=== PATIENT | female | born 1935 | race Caucasian/White ===

== ENCOUNTER 2017-04-08 11:23 | Inpatient (IN) ==
--- OUTSIDE RECORDS SUMMARY | 2017-04-08 13:51 | External Medical Summary | Encounter Summary ---
:1935 Author Organization [facility] Address [address] [place] [address] Phone Care Team Providers Name Role Phone Unavailable Primary Care Provider Unavailable Reason for Visit Reason Comments Medication Refill Encounter Details Date Type Department Care Team Description 01/20/2017 Refill [facility] Sierra Orozco, anesthesiology technologist Refill [address] [place] [address] Social History Tobacco Use Types Packs/Day Years Used Date Never Smoker Smokeless Tobacco: Never Used Alcohol Use Drinks/Week oz/Week Comments No Sex Assigned at Date Recorded Not on file as of this encounter Functional Status Functional Status Response Date of Assessment Does the patient have a hearing impairment: No 02/02/2016 as of this encounter Plan of Treatment Not on fileas of this encounter Visit Diagnoses Not on filein this encounter
--- OUTSIDE RECORDS SUMMARY | 2017-04-08 13:51 | External Medical Summary | Clinical Summary ---
:1935 Author Organization [facility] Address [address] [place] [address] Phone Care Team Providers Name Role Phone Unavailable Primary Care Provider Unavailable Source Comments Some departments are not documenting in the electronic medical record. If you do not see the information that you expected, contact Release of Information in the Health Information Management department at [phone] for further assistance in locating additional records.[facility] Allergies Active Allergy Reactions Severity Noted Date Comments Ampicillin RASH 06/27/2012 Current Medications Prescription Sig. Disp. Refills Start Date End Date Status erythromycin (E-MYCIN) Take 125 mg by Active 250 mg tablet mouth twice daily. metFORMIN (GLUCOPHAGE) Take 1 Tab by 180 Tab 07/15/2012 Active 500 mg mouth twice tabletIndications: CAD daily. DO NOT (coronary artery RESUME UNTIL disease), Hx of CABG, 07/14/12 Aortic stenosis, HTN (hypertension), Hyperlipidemia, Carotid artery stenosis, Diabetes mellitus (HCC), Aortic valve stenosis, CKD (chronic kidney disease), Type II diabetes mellitus (HCC), DM2 (diabetes mellitus, type 2) ([facility]), Type II or unspecified type diabetes mellitus without mention of complication, not stated as uncontrolled, Other and unspecified hyperlipidemia, Unspecified essential hypertension, Coronary atherosclerosis of unspecified type of vessel, [place] or graft, Aortic valve disorders, Occlusion and stenosis of carotid artery without mention of cerebral infarction, Personal history of surgery to heart and great vessels, presenting hazards to health, Chronic kidney disease, unspecified glipiZIDE (GLUCOTROL) 10 Take 0.5 Tabs by 90 Tab 0 09/11/2012 Active mg tablet mouth twice daily. vitamins, multiple Take 1 Tab by Active tablet mouth daily. aspirin EC 81 mg tablet Take 81 mg by Active mouth daily. docusate (COLACE) 100 mg Take 100 mg by Active capsule mouth twice daily. carvedilol (COREG) 25 mg Take 1 Tab by 180 Tab 3 09/27/2013 Active tabletIndications: HTN mouth twice (hypertension) daily. cholecalciferol (VITAMIN Take 1,000 Units Active D-3) 1,000 units tablet by mouth daily. cyanocobalamin (VITAMIN Inject to Active B-12, RUBRAMIN) 1,000 area(s) as mcg/mL injection directed every 30 days. levothyroxine Take 50 mcg by Active (SYNTHROID) 50 mcg mouth daily 30 tablet minutes before breakfast. pantoprazole DR Take 40 mg by Active (PROTONIX) 40 mg tablet mouth daily. PEG 400-Propylene Glycol Place 1-2 Drops Active (SYSTANE) 0.4-0.3 % dpet into or around eye(s) daily. atorvastatin (LIPITOR) Take 1 Tab by 90 Tab 3 02/03/2016 Active 40 mg tablet mouth at bedtime daily. nitroglycerin Place 1 Tab 25 Tab 3 07/16/2016 Active (NITROSTAT) 0.4 mg under tongue tablet every 5 minutes as needed for Chest Pain. Max of 3 tablets, call 911. benazepril (LOTENSIN) 40 Take 1 tablet by 90 tablet 3 01/20/2017 Active mg tablet mouth daily. Active Problems Problem Noted Date S/P TAVR (transcatheter aortic valve replacement) 10/20/2016 NSTEMI (non-ST elevated myocardial infarction) ([facility]) 02/01/2016 History of CVA (cerebrovascular accident) 08/25/2015 Peripheral vascular disease ([facility]) 10/24/2013 Overview: 1. 09/2013 - [facility]RE[facility] - Wound, open, toe 10/24/2013 H/O intracranial hemorrhage 03/16/2013 Overview: 03/31/14-[facility] ED visit- hypertensive crisis, fall with mental status changes, hx CVA; 04/01/14- Head CT, Findings c/w previous left temporal infarct, no signs of acute infarction or hemorrhage. Diastolic CHF, chronic ([facility]) 09/08/2012 CKD (chronic kidney disease) stage 3, GFR 30-59 ml/min 07/12/2012 Aortic stenosis 07/12/2012 DM2 (diabetes mellitus, type 2) ([facility]) 07/12/2012 Coronary artery disease involving [place] coronary artery of [place] heart 06/27 without angina pectoris Overview: 04/26/07-PTCA/Stent to the ostium of the PDA utilizing a 2.0 x 12 Multilink Mini Vision. MLAD successfully stented with a 2.25 x 16 Xpress II stent. 07/12/12: Drug-eluting stent PCI of SVG to RCA 07/02/16 MPI Stress Test @ [facility]: 1. Abnormal perfusion study with ischemia and infarction. 2. Large defect of the apex and septum in the LAD distrubution. This improves very significantly from stress to rest consistent with ischemia, consistent with apical infarction. 3. The overall global systolic function performance suggest a normal EF. The septum has decreased thickening and compared to the lateral wall. LVEF 67%. Last Assessment & Plan: Ms. Hunter had a right and left heart catheterization in July 12, 2012. This showed severe [place] coronary artery disease with a widely patent KINNEY to LAD and a 90% ostial SVG to right PDA. She had a suc cessful PCI with a 3 X 8 mm Xience drug-eluting stent. The patient has been doing well since that time. She denies any episodes of chest pain. She continues on dual antiplatelet therapy with aspirin and Plavix, and continues with aggressive secondary prevention measures. I encouraged her to continue with daily exercise as tolerated. Hx of CABG 06/27/2012 Overview: 08/31/07-CABG x 2 [facility]: KINNEY to LAD. Reverse left SVG to PDA. Essential hypertension 06/27/2012 Last Assessment & Plan: Ms. Hunter's blood pressure is well controlled today. She is tolerating her medications well. We will continue her on her current regimen. Hyperlipidemia 06/27/2012 Carotid artery stenosis 06/27/2012 Overview: 04/01/14-Carotid Ultrasound, [facility]-atherosclerotic disease with stenosis, previous endarterectomy, Right 16-49%, Left 50-79%. Not changed significantly since 2011 study Resolved Problems Problem Noted Date Resolved Date Chest pain 02/01/2016 10/20/2016 Hypertensive emergency 02/01/2016 10/20/2016 Chest discomfort 08/25/2015 10/20/2016 Elevated troponin 08/24/2015 10/20/2016 MCKAYLA (acute kidney injury) (HCC) 09/11/2012 10/20/2016 Chronic systolic congestive heart failure 09/11/2012 09/02/2015 Anemia associated with acute blood loss 09/08/2012 10/20/2016 Aortic valve stenosis 06/27/2012 10/20/2016 Overview: 06/23/12-Echo: EF 65%. Severe aortic stenosis. No regurgitation. Moderate LVH and elevated filling pressure. Mild mitral regurgitation. Normal pulmonary artery pressure. Mild tricuspid regurgitation. 09/07/12-Transaortic valve replacement utilizing a number 23 Natalee valve. 09/08/12-Echo: EF=65%. Grade I (mild) left ventricular diastolic dysfunction. Elevated left atrial pressure. Mild concentric LV hypertrophy. Severe mitral annular calcification. Tricuspid Valve has mild regurgitation. A transcatheter aortic valve prosthesis is present and well seated without evidence of stenosis. There is trace anterior periprosthetic regurgitation. PAP=39 mmHg 10/20/12-Echo: Normal left ventricular function, EF 65% - mild concentric left ventricular hypertrophy. Mild left atrial enlargement. Well seated #23 Fry Natalee valve with trace paravalvular insufficiency, mean AV gradient ~ 12.6 mm Hg. Mild mitral and tricuspid insufficiency. Grade I diastolic dysfunction with an estimated peak PAP ~ 34mm hg. No pericardial effusion Last Assessment & Plan: Ms. Hunter has known severe aortic stenosis. Her recent echocardiogram from June showed a calculated valve area of 0.54 cm2, mean gradient of 41 mmHg, peak velocity of 4.2 m/s. The patient is current ly being evaluated by Dr. Clemons for inclusion in the CoreValve study. She currently is doing reasonably well without significant limitations. Type II diabetes mellitus (HCC) 06/27/2012 07/12/2012 Encounters Date Type Specialty Care Team Description 01/20/2017 Refill Cardiology Sierra Orozco, poultryman Refill from Last 3 Months Immunizations Name Dates Previously Given Next Due Flu Vaccine=>3 YO (Historical) 02/06/2014 Flu Vaccine Trivalent=>3 Yo (Preservative Free) 03/17/2013 Family History Medical History Relation Name Comments High Cholesterol Sister Hypertension Sister Relation Name Status Comments Sister Social History Tobacco Use Types Packs/Day Years Used Date Never Smoker Smokeless Tobacco: Never Used Tobacco Cessation: Counseling Given: No Alcohol Use Drinks/Week oz/Week Comments No Sex Assigned at Date Recorded Not on file Last Filed Vital Signs Vital Sign Reading Time Taken Blood Pressure 136/60 10/20/2016 10:52 AM CDT Pulse 53 10/20/2016 10:52 AM CDT Temperature 36.7 C (98 F) 02/03/2016 10:55 AM CDT Respiratory Rate - - Oxygen Saturation 98% 10/20/2016 10:52 AM CDT Inhaled Oxygen Concentration - - Weight 61.1 kg (134 lb 12.8 oz) 10/20/2016 10:52 AM CDT Height 165.1 cm (5' 5") 10/20/2016 10:52 AM CDT Body Mass Index 22.43 10/20/2016 10:52 AM CDT Plan of Treatment Health Maintenance Due Date Last Done Comments PHYSICAL (COMPREHENSIVE) EXAM 1940 PERTUSSIS VACCINE 1944 TETANUS VACCINE 1950 DILATED EYE EXAM 1951 FOOT EXAM 1951 MICROALBUMIN 1951 SHINGLES VACCINE 1993 OSTEOPOROSIS SCREENING 1998 PREVNAR/PNEUMOVAX (#1) 1998 HBA1C 07/31/2016 02/01/2016, 08/24/2015, 03/16/2013, Additional history exists INFLUENZA VACCINE 12/07/2016 02/06/2014, 03/17/2013 Implants Implanted Type Area Metallography Teacher Device Identifier Expiration Date Model / Serial / Lot Heart Valve
--- OUTSIDE RECORDS SUMMARY | 2017-04-08 13:51 | External Medical Summary | Continuity of Care Document ---
:1935 Author Organization [facility] Care Team Providers Name Role Phone [employer] Unavailable Unavailable Family History Value Date Source Advance Directives Order Name Results Value Date Source
--- OUTSIDE RECORDS SUMMARY | 2017-04-08 13:51 | External Medical Summary | Clinical Summary ---
:1935 Author Organization [facility] Address [address] [address] Phone Allergies Active Allergy Reactions Severity Noted Date Comments Ampicillin Hives Current Medications Prescription Sig. Disp. Refills Start Date End Date Status atorvastatin (LIPITOR) taking 60mg orally 0 0 01/30/2009 Active 80 MG tablet daily metFORMIN (GLUCOPHAGE) one orally 2 x a day 0 0 01/30/2009 Active 500 MG tablet Clocortolone Pivalate Apply to affected 0 0 01/30/2009 Active (CLODERM PUMP) 0.1 % area three times CREA daily benazepril (LOTENSIN) 20 one orally daily 0 0 01/30/2009 Active MG tablet aspirin 325 MG tablet one orally daily 0 0 01/30/2009 Active docusate sodium (COLACE) 1-2 orally at 0 0 01/30/2009 Active 100 MG capsule bedtime glipiZIDE (GLUCOTROL) 10 one orally 2 x a day 0 0 01/30/2009 Active MG tablet atenolol (TENORMIN) 25 one orally daily 0 0 01/30/2009 Active MG tablet desonide (DESOWEN) 0.05 Apply topically See 30 0 02/03/2009 Active % cream Admin Instructions. .reconcile (MEDICATION No Sig 1 0 10/27/2012 Active LIST IMPORTED) Active Problems Not on file Social History Tobacco Use Types Packs/Day Years Used Date Never Assessed Sex Assigned at Date Recorded Not on file Plan of Treatment Health Maintenance Due Date Last Done Comments DTaP,Tdap,and Td Vaccines (1 - Tdap) 1952 Zoster Vaccine (#1) 1993 Pneumo-Adult (1 of 2 - PCV13) 1998 Influenza Vaccine (#1) 2017 Results Not on filefrom Last 3 Months
--- NOTE | 2017-04-08 14:29 | IRU History & Physical Report ---
HPI [facility] Date: 423 Chief complaint: I'm weak and can't do what I want to do HPI: Ms. Hunter is an 81-year-old female referred by Dr. Michael Li who is also her primary care physician in [facility]. She had developed acute confusion but declined intervention during the day on 03/31/2017. History is obtained predominantly from the patient and her daughters are with her today in the examination room. She told them that she felt like she was so dizzy that she could pass out. As the day progressed she became more and more confused and lethargic. It looked like she had had another bleed because she had had one about 3-4 years ago and a behavior the same way. Ultimately she agreed to be seen and was seen in the emergency department at [facility]. (She was visiting her daughter here in [place] for Thanksgiving.) CT scan of the head revealed an acute intraparenchymal bleed involving the left frontal lobe. Bleed measured 4.5 x 4.3 cm. Blood pressure had been noted to be elevated at 230 systolic earlier in the day. She had been acutely confused during the day at but had no focal deficits. It is noted that her creatinine that time was 1.5. Patient was transferred acutely to [facility]. She did complain of headache as well. At [facility] in [place] neurosurgery (Dr. Napoles) was consulted. He did not recommend surgical intervention but recommended medical management. Repeat head CT was reportedly stable and she was transferred to her home. She was evaluated by physical therapy and occupational therapy near the end of her stay at [facility]. She was felt to be stable to go home. However, since that time one of her daughters has been staying with her because she was not stable and too weak to care for herself. Blood pressures at that time appeared to be controlled with lisinopril and Coreg. She actually went home on benazepril and Coreg. She was dismissed from [facility] on April 04 to return to her private home in [facility], but required one of her daughters staying with her at all times. CT angiogram of the head and neck performed in [place] on 04/01/2017 demonstrated the acute intraparenchymal hemorrhage in the left frontal location. In addition, there was noted intraventricular extension of the hemorrhage without obstructive hydrocephalus. The major intracranial arteries were patent without aneurysm. A previous right sided carotid endarterectomy was evident. There is some plaquing of the left internal carotid artery with less than 50% luminal narrowing on the left. She has a history of hypertension. She had a similar episode about 3-4 years ago which also turned out to be a bleed in a different location. Since being dismissed from [facility] this time, her blood pressures have been closely monitored. One time it did go up over 170 and she was seen in the emergency department at [facility]. She received several intravenous medications and blood pressure was difficult to bring down. However since that time her blood pressures have been doing better, ranging between 110 and 170 systolic. Diastolics are in the 40-50 range. She has a history of diabetes mellitus. She checks her blood sugars twice daily. Fasting sugars are around 160. She was on metformin plus glipizide. ( This was prior to the most recent bleed). Her blood sugars started going down and for this reason medications were discontinued. Subsequently her sugars went up and she was placed back on metformin only at a dose of 500 mg twice daily. Therefore she does have a history of quite a bit of variation in her blood sugars. She also has history of coronary artery disease and is status post bypass. She had an aortic valve placed about 4 years ago at ([facility]). This apparently is a porcine valve and she is on only a baby aspirin daily and no other anticoagulant. She does have some intermittent memory loss. However according to the family, at the previous stroke for which she was hospitalized and in fact on IRU about 3 -4 years ago, her cognition was worse and it is at the present time. I discussed the issue of resuscitation with the patient and her 2 daughters. She does want to be resuscitated, at least for a short time. She does not want a prolonged ventilator experience however. Level of functioning prior to the current bleed is as follows: She was independent for all activities. She could walk without an assistive device. She was modified independent for stairs. Prior to the current event, she was living independently in her home at [facility]. She had been visiting her daughter here in [place] for Thanksgiving when she started to have increased confusion. Current level of functioning is as follows: She requires moderate assistance for upper and lower body dressing as well as bed/chair/wheelchair transfers. Requires minimum assistance for toilet transfers and walking with multiple episodes of loss of balance. Stairs were not tested at this time. She is unable to safely live at home independently at this time. We received a phone call from her physician Dr. Michael Li because the patient' s functional impairments. She was evaluated by physical therapy and occupational therapy as an outpatient in [place] and felt to be a good candidate for inpatient rehabilitation. The following medical conditions are noted and require active monitoring and/or management: 1. Recent intraparenchymal bleed resulting in multiple functional impairments. She is at risk for continued bleeding or recurrent bleeding as well as other neurologic deficits. 2. Labile blood pressure. Her blood pressures have remained labile since the event. She is at risk for further uncontrolled hypertension and also requires avoidance of hypotension. 3. Diabetes mellitus, type II. In view of increased work demands she is at risk for hypoglycemia. In view of the stroke she is at risk for hyperglycemia. 4. Anemia. On 04/01/2017 her hemoglobin was 11.4. As of 04/04/2017 in [place] it was 9.8. Etiology of her anemia is not clear what this will require monitoring. 5. Acute kidney injury. Creatinine here in [place] was 1.5. Most recently in [place] it was measured at 1.1 on 04/04/2017. The following therapies will be needed: 1. Physical therapy: for transfers and ambulation and stairs. 2. Occupational therapy: for ADL's and transfers. 3. Medical management: for the above conditions. 4. 24 hour Rehabilitation Nursing to monitor and address the following: Blood sugars, blood pressures, neurologic status and assistance to reduce fall risk. [facility] Patient Stated Medical History Cerebrovascular Accident Yes Other Cardiology Yes: HEART VALVE Diabetes Mellitus Type 2 Yes Clinic Medical History Intraparenchymal hemorrhage of brain (Inactive Medical) Medical History Updates: NIDDM. HTN. Hyperlipidemia. CAD. CHF-uncertain ejection fraction. Last echocardiogram 2015. Cerebral hemorrhage. CVA-prior cerebral hemorrhage in approximately 2013. Anemia. Chronic dry eyes Surgical History: CABG. Aortic valve replacement-TAVR, [facility], approx. 2012. Right carotid endarterectomy Family History: Patient's father of old age. Mother's uncertain cause. - Social History Smoking status: Never smoker Substance use type: does not use Alcohol intake: never Alcohol intake frequency: does not drink Housing: house Household members: caregiver (formerly patient lived independently. Recently her daughters have had to live with her 24 hours daily.) Current occupational status: retired Current residence: Apartment/Private Home Social history: Patient is . Her has since . 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 Review of Systems - Constitutional Constitutional: Absent: anorexia, chills, fatigue, fever(s), headache(s), lethargy, malaise, night sweats, weakness, weight gain, weight loss - EENMT Eyes: Absent: blurry vision, change in vision, diplopia Mouth/Throat: Absent: changes in swallowing, painful swallowing, change in taste , bleeding gums, change in voice - Cardiovascular Cardiovascular: Absent: chest pain, palpitations, syncope, dyspnea on exertion, orthopnea, edema, cyanosis, heart murmur Rhythm: Present: regular rhythm Vascular: Absent: intermittent claudication, pedal edema, unilateral swelling - Respiratory Respiratory: Absent: cough, dyspnea, hemoptysis, dyspnea on exertion, wheezing, pain on inspiration, chest congestion, excessive phlegm production - Gastrointestinal Gastrointestinal: Present: constipation. Absent: abdominal pain, change in bowel habits, diarrhea, dyspepsia, dysphagia, early satiety, hematochezia, melena, nausea, vomiting - Genitourinary Genitourinary: Present: urinary incontinence - Musculoskeletal Musculoskeletal: Present: myalgias. Absent: abnormal gait, arthralgias, back pain, joint swelling, limited range of motion, muscle weakness - Integumentary/Breasts Integumentary: Absent: alopecia, erythema, lesions, pruritus, rash, jaundice - Neurological Neurological: Absent: abnormal gait, abnormal movements, abnormal speech, confusion, convulsions, dizziness, focal weakness, frequent falls, headache(s), loss of vision, memory loss, numbness, paresthesias, tremor(s) - Psychiatric Psychiatric: Present: other (cognition/memory tends to come and go.). Absent: abnormal sleep pattern, anxiety, depression - Endocrine Endocrine: Absent: cold intolerance, flushing, heat intolerance, palpitations - Hematologic/Lymphatic Hematologic/Lymphatic: Absent: easy bleeding, easy bruising, lymphadenopathy - Allergic/Immunologic Allergic/Immunologic: Absent: urticaria Medications Home Medications Medication Instructions Recorded Confirmed Type Acetaminophen [Tylenol] 650 mg PO PRN PRN #0 03/27/13 History Atorvastatin [Lipitor] 80 mg PO DAILY #0 03/27/13 History Carvedilol 25 mg PO BID #0 tab 03/27/13 03/31/17 History Docusate Sodium [Colace] 100 mg PO BID #0 03/27/13 History Famotidine [Pepcid] 20 mg PO DAILY #0 03/27/13 History Hydrocodone Bit/Acetaminophen 1 - 2 udtab PO PRN #0 03/27/13 History ([place] 5) Insuln Asp Prt/Insulin Aspart 0 - 4 unit SQ SS #0 03/27/13 History (Novolog Mix 70/30 Flexpen Syrn) Lisinopril [Prinivil] 10 mg PO BID #0 03/27/13 History Magnesium Hydroxide [Milk of 10 ml PO DAILY #0 03/27/13 History Magnesia] Sennosides/Docusate Sodium [Senna 1 tab PO BID #0 03/27/13 History S Tablet] Aspirin 1 tab PO DAILY 03/31/17 03/31/17 History Atorvastatin [Lipitor] 1 tab PO HS 03/31/17 03/31/17 History Benazepril HCl 40 mg PO 03/31/17 History GlipiZIDE [Glucotrol] 1 tab PO BID 03/31/17 03/31/17 History Levothyroxine Tab [Synthroid] 50 mcg PO ACB 03/31/17 03/31/17 History Metformin [Glucophage] 500 mg PO BID 03/31/17 03/31/17 History Pantoprazole Tab [Protonix Tab] 1 tab PO ACB 03/31/17 03/31/17 History Allergies Allergy/AdvReac Type Severity Reaction Status Date / Time ampicillin Allergy Unknown RASH Verified 03/31/17 22:17 Results IRU - Labs Labs: Have reviewed extensive outside records from [place] as well as [facility]. Also personally reviewed the CT scan. Exam - Constitutional Present: no acute distress, well nourished, well developed, average body habitus , cooperative - Routine HEENT Exam Head: Present: normocephalic, atraumatic. Absent: cushingoid faces, abrasion, laceration, hematoma Eye: Present: EOMI, PERRL (pupils are reactive but small bilaterally.). Absent : conjunctival icterus, scleral injection, periorbital swelling, nystagmus ENT: Present: mucous membranes moist, oropharynx clear - Routine Neck Exam Present: supple, full ROM, trachea midline. Absent: lymphadenopathy, thyromegaly, tenderness, swelling - Routine Chest/Breast/Axilla Exam Chest wall: Absent: tenderness, mass Axillae: Absent: lymphadenopathy, mass - Routine Respiratory Exam Present: CTA bilaterally. Absent: accessory muscle use, decreased breath sounds , prolonged expiratory phase, rales, respiratory distress, rhonchi, stridor, wheezes, crackles, distant breath sounds - Routine Cardiovascular Exam Present: RRR, S1, S2, murmur (grade 2-3/6 systolic murmur second right interspace and upper left sternal border), click (subtle click noted consistent with her prosthetic valve.). Absent: gallop, S3, S4, irregular rhythm - Routine Abdominal Exam Present: soft, normoactive bowel sounds, non distended, non tender. Absent: rebound, guarding, firm, rigid, organomegaly, mass, hernia, wound - Routine Extremities Exam Present: no edema, non tender, pulses intact, normal capillary refill. Absent: cyanosis, clubbing - Routine Back/Spine/Pelvis Exam Back/Spine: Present: full ROM. Absent: scoliosis, kyphosis - Routine Skin Exam Present: intact, dry, warm. Absent: cyanosis, erythema, pallor, mottling, petechiae, urticaria, lesions, jaundice - Routine Neurological Exam Present: alert, oriented X3, CN II-XII intact, moving all extremities, normal speech Fine motor movement appears to be normal bilaterally. There is no facial droop. Cranial nerves II through 7 appear to be intact bilaterally. Speech is fluent. Appears to be moderately well oriented. However she did indicate that both parents are living when in fact they're not. - Routine Psychiatric Exam Present: normal affect, normal thought process, cooperative, good judgment. Absent: depressed, anxious Sepsis Assessment - Evaluation Confirmed Suspected Infection: No SIRS Criteria: none IRU A/P (1) Subacute intracranial hemorrhage Current visit: Yes Status: Acute Date of intraparenchymal hemorrhage was 03/31/2017. She has had stable CT scans since that time. However she is at risk for further bleeding and further neurologic complications. This has resulted in significant functional deficits which required a multidisciplinary approach to allow her to live as independently as feasible. (2) Hypertension Qualifiers: Hypertension type: essential hypertension Qualified Code(s): I10 - Essential (primary) hypertension Current visit: Yes Status: Chronic Blood pressures have remained variable even since the stroke. She will require close monitoring of her blood pressures in an effort to avoid hypotension and avoid hypertension. (3) DM type 2 (diabetes mellitus, type 2) Qualifiers: Diabetes mellitus complication status: with hyperglycemia Diabetes mellitus joint terminal attack controller insulin use: without senior care use Qualified Code(s): E11.65 - Type 2 diabetes mellitus with hyperglycemia Current visit: Yes Status: Chronic Reports that she checks her blood sugars twice daily with fasting sugars running around 160. She is on metformin only at the present time. (4) Anemia Qualifiers: Anemia type: unspecified type Qualified Code(s): D64.9 - Anemia, unspecified Current visit: Yes Status: Acute Hemoglobin had dropped from around 11 g percent down to 9 g percent for uncertain reasons. Etiology of her anemia is not clear at this time. This we monitored carefully as she is at risk for further drop in her hemoglobin. Resuscitation Status: Full Code - Course Hospital Course: Gaudencio Coe MD: - Interventions to Obtain Goals PT Treatment Plan: Balance/Proprioception, Functional Activities, Gait Training , Patient/Family Education OT Treatment Plan: ADL (Basic Care), Balance Training, Pt./Family Education Goals Progress/Modifications: This patient requires a multidisciplinary approach in view of her diabetes mellitus which has had variable blood sugars, hypertension which at times has been quite high as well as the recent intraparenchymal bleed. She will be monitored by 24 hour rehabilitation nursing as well as be seen by the hospitalist service and OT and PT. She requires medical supervision of these issues as well.
[2017-04-08 15:35] VITALS: BMI 23.4
--- NOTE | 2017-04-08 15:43 | IRU 24Hr Post Admit Eval ---
24 Hr Post Admission Physical - Relevant Changes Relevant Changes: No Reviewed: I have reviewed the patient's information and concur with the finding and results of the pre-admission screen. Certification: I certify the patient for rehabilitation. - Patient Condition (1) Subacute intracranial hemorrhage Status: Acute Code(s): I62.9 - Nontraumatic intracranial hemorrhage, unspecified Classification: Present on IRF Admission, IRF Tx That Should Address Diagnosis, Diagnosis Requiring Medical Follow Up (2) Hypertension Status: Chronic Qualifiers: Hypertension type: essential hypertension Qualified Code(s): I10 - Essential (primary) hypertension Code(s): I10 - Essential (primary) hypertension Classification: Present on IRF Admission, IRF Tx That Should Address Diagnosis, Diagnosis Requiring Medical Follow Up (3) DM type 2 (diabetes mellitus, type 2) Status: Chronic Qualifiers: Diabetes mellitus complication status: with hyperglycemia Diabetes mellitus terminal worker insulin use: without terminal worker use Qualified Code(s): E11.65 - Type 2 diabetes mellitus with hyperglycemia Code(s): E11.9 - Type 2 diabetes mellitus without complications Classification: Present on IRF Admission, IRF Tx That Should Address Diagnosis, Diagnosis Requiring Medical Follow Up (4) Anemia Status: Acute Qualifiers: Anemia type: unspecified type Qualified Code(s): D64.9 - Anemia, unspecified Code(s): D64.9 - Anemia, unspecified Classification: Present on IRF Admission, IRF Tx That Should Address Diagnosis, Diagnosis Requiring Medical Follow Up - Prior Functional Status Lives With: With Family Residence Type: Apartment/Private Home Assitive Devices: None Prior Functional Status: Indep. at home or school, Indep. w/ all home ADL - Current Functional Status Current Level of Function: Current level of functioning is as follows: She requires moderate assistance for upper and lower body dressing as well as bed/chair/wheelchair transfers. Requires minimum assistance for toilet transfers and walking with multiple episodes of loss of balance. Stairs were not tested at this time. She is unable to safely live at home at this time. Failed Alternative Therapy: Yes (patient was evaluated for outpatient physical and occupational therapy. She is not a candidate for this because of the need for a multidisciplinary approach including monitoring and control of blood pressure and blood sugars as well as monitor her neurologic status.) Patient Requirements: The patient requires oversight by rehabilitation physician to manage their rehabilitation treatment plan and multidisciplinary approach to care that can only be provided in an IRF and requires a multidisciplinary approach to care, provided by professional PTs, OTs, STs, dieticians, RTs, rehabilitation nurses and is not available in lesser levels of care. Limitations Req: Mobility Impairment, ADL Impairment Physical Therapy Minutes: 90 Occupational Therapy Minutes: 90 Therapy: The patient is to receive therapy at least 5 days a week. - Complications/Comorbidities Impact on Functional Outcomes: Her recent intraparenchymal bleed as well as her reduced cognition may be factors in reducing her functional outcome. Barriers to Discharge: Weakness, Balance, Endurance, Medical Limitation - Plan to Avoid Complications Plan to Avoid Complications: The patient cannot receive this care in a lesser intensive setting such as Correction or Outpatient Therapy due to the patient requiring the following : She requires a highly corticated approach involving 24 rehabilitation nursing to monitor blood sugars, neurologic status and blood pressures. She requires a coordinated approach by occupational therapy and physical therapy with medical supervision. .
[2017-04-08] MEDS ORDERED: CYANOCOBALAMIN (B-12) 1,000mcg/ml INJECTION SQ SCH (15:45)
--- NOTE | 2017-04-08 15:48 | Progress Note ---
Progress Note: It is noted that Lovenox is contraindicated at present in view of the relatively recent intraparenchymal bleed. Secondly, she is on erythromycin for delayed gastric emptying.
[2017-04-08] MEDS: CARVEDILOL 25 MG TABLET PO SCH (18:39)
[2017-04-08] MEDS: METFORMIN 500 MG TABLET PO SCH (18:40)
[2017-04-08] MEDS: ATORVASTATIN 10 MG TABLET PO SCH (20:51)
[2017-04-08] MEDS: ERYTHROMYCIN 250 MG PO SCH (20:51)
[2017-04-08] MEDS: DOCUSATE SODIUM 100 MG CAPSULE PO SCH (20:51)
[2017-04-09] MEDS: PANTOPRAZOLE 40 MG TABLET PO SCH ×2 (05:14→07:39)
[2017-04-09] MEDS: LEVOTHYROXINE 50 MCG TABLET PO SCH ×2 (05:14→07:39)
[2017-04-09] MEDS: MULTI-VITAMIN PLAIN TABLET PO SCH (08:21)
[2017-04-09] MEDS: DOCUSATE SODIUM 100 MG CAPSULE PO SCH ×2 (08:21→21:28)
[2017-04-09] MEDS: ERYTHROMYCIN 250 MG PO SCH ×2 (08:22→21:28)
[2017-04-09] MEDS: METFORMIN 500 MG TABLET PO SCH ×2 (08:22→17:46)
[2017-04-09] MEDS: ASPIRIN 81 MG CHEWABLE TABLET PO SCH (08:22)
[2017-04-09] MEDS: CARVEDILOL 25 MG TABLET PO SCH ×2 (08:25→17:46)
[2017-04-09] MEDS: BENAZEPRIL 40 MG TABLET PO SCH (08:25)
[2017-04-09] MEDS ORDERED: SYSTANE EYE EACH EYE PRN (12:59)
--- NOTE | 2017-04-09 13:06 | Consult Note ---
<Yulia Cortes - Last Filed: 04/09/17 13:02> Consult Information - Data of Consult Consult date: 04/09/17 Requesting Physician: Gaudencio Coe MD Primary Care Provider: Michael Mata MD Family Provider: Michael Mata MD - Consult Narrative Reason for consult: Management of medical co-morbid conditions, including anemia , HTN, et al. History of present illness: Kristen is a very pleasant 81 yo WF who experienced a ICH 4-5 years ago and required hospitalization. She recovered nicely, but experienced a recurrence of her symptoms on 03/31/17. She was brought into the ER and was found to have a recurrence of a fairly large intraparenchymal hemorrhage, felt to be due to variable BP. She was transferred emergently to [place] and was evaluated by Dr. Napoles. He did not feel that she required surgery, and recommended medical management. Following stabilization, she was returned home, but has remained weak and deconditioned. Due to prior experience at [facility], family requested admission here for further rehabilitation and return to baseline function. A medical management consult has been requested by our service. She is seen with daughter at bedside. She reports feeling well. No acute needs are reported. Is more weak in her legs, but no specific focal weakness. Some mild intermittent confusion, which is improving. No difficulty eating. Does have some issues with dry eyes- requests eye drops be resumed. Daughter reports that her voice is a little more hoarse than usual, but pt. does not have any cough, sore throat, etc. No other acute concerns are reported. [facility] Patient Stated Medical History Cerebrovascular Accident Yes: 2013 Cataracts Yes Heart Murmur Yes Hypertension Yes Other Cardiology Yes: Pig aortic HEART VALVE Diabetes Mellitus Type 2 Yes Constipation Yes Other GI Yes: slowed gastric emptying Hx Incontinence Yes Osteoarthritis Yes Sepsis Yes: [facility] Medical History Subacute intracranial hemorrhage (Acute Medical) Hypertension (Chronic Medical) DM type 2 (diabetes mellitus, type 2) (Chronic Medical) Anemia (Acute Medical) Intraparenchymal hemorrhage of brain (Inactive Medical) Medical History Updates: NIDDM. HTN. Hyperlipidemia. CAD. CHF-uncertain ejection fraction. Last echocardiogram 2016. Cerebral hemorrhage. CVA-prior cerebral hemorrhage in approximately 2013. Intraparenchymal hemorrhage 2017. Anemia. Chronic dry eyes Surgical History: CABG. Aortic valve replacement-TAVR, [facility], approx. 2013. ( CV in [place]). Right carotid endarterectomy Family History: Father- Old age Mother- unknown - Social History Housing: house Current occupational status: retired Current residence: Apartment/Private Home Review of Systems - Constitutional Constitutional: Absent: headache(s), malaise - EENMT Eyes: Present: dry eye. Absent: blurry vision Balance: Absent: vertigo, ataxia Mouth/Throat: Present: change in voice. Absent: sore throat, scratchy throat, change in taste - Cardiovascular Cardiovascular: Present: heart murmur. Absent: chest pain, dyspnea on exertion , edema Rhythm: Present: regular rhythm Vascular: Absent: pedal edema - Respiratory Respiratory: Absent: cough, dyspnea, dyspnea on exertion - Gastrointestinal Gastrointestinal: Absent: abdominal pain, constipation, diarrhea, nausea, vomiting - Musculoskeletal Musculoskeletal: Present: muscle weakness. Absent: limited range of motion, neck pain - Integumentary/Breasts Integumentary: Absent: change in hair - Neurological Neurological: Present: abnormal gait, confusion, memory loss, weakness. Absent : headache(s) Neurological Comments: Improving Medications Home Medications Medication Instructions Recorded Confirmed Type Carvedilol 25 mg PO BID #0 tab 03/27/13 04/08/17 History Docusate Sodium [Colace] 100 mg PO BID #0 03/27/13 04/08/17 History Aspirin 1 tab PO DAILY 03/31/17 04/08/17 History Atorvastatin [Lipitor] 1 tab PO HS 03/31/17 04/08/17 History Benazepril HCl 40 mg PO DAILY 03/31/17 04/08/17 History Levothyroxine Tab [Synthroid] 50 mcg PO ACB 03/31/17 04/08/17 History Metformin [Glucophage] 500 mg PO BIDWM 03/31/17 04/08/17 History Pantoprazole Tab [Protonix Tab] 1 tab PO ACB 03/31/17 04/08/17 History Cholecalciferol (Vitamin D3) 400 unit PO DAILY 04/08/17 04/08/17 History [Vitamin D3] Cyanocobalamin (B-12) [Vit. B-12] 1,000 mcg SQ 1 MONTH 04/08/17 04/08/17 History Erythromycin Base [Erythromycin] 0.5 tab PO BID 04/08/17 04/08/17 History Multi-Vitamin Plain [Theragran] 1 tab PO DAILY 04/08/17 04/08/17 History Allergies Allergy/AdvReac Type Severity Reaction Status Date / Time ampicillin Allergy Unknown RASH Verified 04/08/17 20:49 Exam Vital Signs: Temperature 97.5 F 04/08/17 19:33 Pulse Rate 60 04/09/17 08:00 Respiratory Rate 16 04/09/17 08:00 Blood Pressure 122/52 04/09/17 08:00 Pulse Oximetry 97 04/09/17 08:00 Height/Weight/BMI: Height 1.63 m Weight 61.9 kg Body Mass Index 23.4 - Constitutional Present: no acute distress, well nourished, well developed, average body habitus , cooperative - Routine HEENT Exam Head: Present: normocephalic, atraumatic Eye: Present: EOMI, PERRL, normal accommodation. Absent: conjunctival icterus ENT: Present: mucous membranes moist - Routine Neck Exam Present: supple. Absent: tenderness, swelling - Routine Respiratory Exam Present: CTA bilaterally. Absent: accessory muscle use, dyspnea, rales, rhonchi , wheezes, crackles - Routine Cardiovascular Exam Present: RRR, S1, S2, murmur - Routine Abdominal Exam Present: soft, normoactive bowel sounds, non distended, non tender - Routine Extremities Exam Present: no edema, non tender - Routine Skin Exam Present: intact, dry, warm - Routine Neurological Exam Present: alert, oriented X3, moving all extremities, hemineglect, normal speech. Absent: facial asymmetry - Routine Psychiatric Exam Present: normal affect, cooperative Results - Labs CBC & Chem 7: 04/09/17 05:36 04/09/17 05:36 Assessment and Plan (1) Subacute intracranial hemorrhage Current visit: Yes Status: Acute Assessment and Plan: Assessment: Intraparenchymal hemorrhage, recurrence Variable Hypertension CAD h/o CABG Valvular heart disease h/o TAVR (no open valve surgery) Possible CHF Left ICA stenosis, mild DM2 Anemia Acute on chronic renal disease Plan: Higher risk of recurrence given history. Continue BP control- attempt to avoid aggressive highs or lows. Continue Coreg and DEMOND, but monitor SCr. Suspect CKD is chronic- baseline appears to be around 1.5. Continue ASA given cardiac history. Mild ICA stenosis- no surgical intervention. Hx of right CEA in the past. BG has been running high. Will add low-dose glipizide for now. Continue current metformin given age. Follow HGB- anemia may be related to stress, CKD, and acute IPH. Follow labs closely. Resume home eye gtts. Thank you for the consult- we will follow with you. DVT Prophylaxis: SCD's Resuscitation Status: Full Code Hospital Course Summary Disclaimer: The visit summary below is not to be considered part of the above Progress Note. Hospital Course: 04/09/17 13:34 Assessment: Intraparenchymal hemorrhage, recurrence Variable Hypertension CAD h/o CABG Valvular heart disease h/o TAVR (no open valve surgery) Possible CHF Left ICA stenosis, mild DM2 Anemia Acute on chronic renal disease Plan: Higher risk of recurrence given history. Continue BP control- attempt to avoid aggressive highs or lows. Continue Coreg and DEMOND, but monitor SCr. Suspect CKD is chronic- baseline appears to be around 1.5. Continue ASA given cardiac history. Mild ICA stenosis- no surgical intervention. Hx of right CEA in the past. BG has been running high. Will add low-dose glipizide for now. Continue current metformin given age. Follow HGB- anemia may be related to stress, CKD, and acute IPH. Follow labs closely. Resume home eye gtts. Thank you for the consult- we will follow with you. <Johnny Mancera - Last Filed: 04/09/17 17:56> Consult Information - Data of Consult Requesting Physician: Gaudencio Coe MD Primary Care Provider: Michael Mata MD Family Provider: Michael Mata MD [facility] Patient Stated Medical History Cerebrovascular Accident Yes: 2013 Cataracts Yes Heart Murmur Yes Hypertension Yes Other Cardiology Yes: Pig aortic HEART VALVE Diabetes Mellitus Type 2 Yes Constipation Yes Other GI Yes: slowed gastric emptying Hx Incontinence Yes Osteoarthritis Yes Sepsis Yes: [facility] Medical History Subacute intracranial hemorrhage (Acute Medical) Hypertension (Chronic Medical) DM type 2 (diabetes mellitus, type 2) (Chronic Medical) Anemia (Acute Medical) Intraparenchymal hemorrhage of brain (Inactive Medical) Exam Vital Signs: Temperature 97.5 F 04/08/17 19:33 Pulse Rate 60 04/09/17 08:00 Respiratory Rate 16 04/09/17 08:00 Blood Pressure 122/52 04/09/17 08:00 Pulse Oximetry 97 04/09/17 08:00 Height/Weight/BMI: Height 1.63 m Weight 61.9 kg Body Mass Index 23.4 Results - Labs CBC & Chem 7: 04/09/17 05:36 04/09/17 05:36 Assessment and Plan (1) Subacute intracranial hemorrhage Current visit: Yes Status: Acute Assessment and Plan: Assessment Intraparenchymal hemorrhage, recurrence Concern for cognitive deficits given left frontal lobe location of bleed Variable Hypertension CAD h/o CABG Valvular heart disease h/o TAVR (no open valve surgery) Possible CHF Left ICA stenosis, mild Type II DM HDL Hypothyroidism Anemia Stage III CKD Have independently interviewed and examined pt. Chart reviewed. Case discussed with IRU nursing and my CURATOR. Care plan developed with my supervision; agree with above. Admitted to IRU for restorative therapy following cerebral hemorrhage-presented to [facility] on 03/31/[address] revealed new area of cerebral hemorrhage. Hospitalized at [facility]. No surgical intervention needed. Did make functional gains with therapy and able to be discharge to home. Discharge to home with therapy. Despite her (and her daughter's) best effort, functional status declined at home. Progressively more weak. Currently, denies specific complaints. Tolerating therapy. Breathing well-not congested or SOA. No chest pressure, pain, or palpitations. Eating well. No nausea or ab pain. Lungs: clear bilaterally, no distress on RA CV: regular with GERRY and closing click. Radial pulses equal and strong bilaterally. AB: soft nt/nd +BS Ext: no edema Psych: awake alert. Converses well, but will repeat herself often. Not agitated or restless. Very pleasant to visit with. Plan: Agree with admission of patient to [facility] to maximize functional status. Home antihypertensives continued-monitor blood pressure. Renal status stable- creatinine the same when she was on IRU years ago. Monitor blood sugars - glipizide added to metformin, watch for hypoglycemia. Liver enzymes from ED visit on 03/31/17 normal. Monitor cognitive status-at risk for high functional deficits due to left front lobe hemorrhage. Encourage continuation of therapy to maximize functional status. Medically stable for IRU floor activities. Hospital Course Summary Disclaimer: The visit summary below is not to be considered part of the above Progress Note.
[2017-04-09] MEDS: ATORVASTATIN 10 MG TABLET PO SCH (21:28)
[2017-04-10] MEDS: LEVOTHYROXINE 50 MCG TABLET PO SCH (05:37)
[2017-04-10] MEDS: PANTOPRAZOLE 40 MG TABLET PO SCH (05:37)
[2017-04-10] MEDS: BENAZEPRIL 40 MG TABLET PO SCH (08:35)
[2017-04-10] MEDS: MULTI-VITAMIN PLAIN TABLET PO SCH (08:35)
[2017-04-10] MEDS: ERYTHROMYCIN 250 MG PO SCH ×2 (08:36→20:49)
[2017-04-10] MEDS: GlipiZIDE 5 MG TABLET PO SCH (08:36)
[2017-04-10] MEDS: ASPIRIN 81 MG CHEWABLE TABLET PO SCH (08:36)
[2017-04-10] MEDS: METFORMIN 500 MG TABLET PO SCH ×2 (08:36→17:33)
[2017-04-10] MEDS: CARVEDILOL 25 MG TABLET PO SCH ×2 (08:36→17:33)
[2017-04-10] MEDS: DOCUSATE SODIUM 100 MG CAPSULE PO SCH ×2 (08:36→20:49)
[2017-04-10] MEDS: ATORVASTATIN 10 MG TABLET PO SCH (20:49)
[2017-04-11] MEDS: LEVOTHYROXINE 50 MCG TABLET PO SCH (05:48)
[2017-04-11] MEDS: PANTOPRAZOLE 40 MG TABLET PO SCH (05:48)
--- NOTE | 2017-04-11 08:09 | Progress Note ---
<Kira Olivera D - Last Filed: 04/11/17 08:05> - Date 04/11/17 Subjective: Kristen has been A&O to self. She was working with therapy this am and denied any new complaints. Therapy reported that she has less coordination with the left leg, but arms are equal. Oral intake has been good. No BM charted since admission. Objective Vital signs: Temperature 97.5 F 04/11/17 07:46 Pulse Rate 61 04/11/17 07:46 Respiratory Rate 16 04/11/17 07:46 Blood Pressure 138/49 04/11/17 07:46 Pulse Oximetry 98 04/11/17 07:46 Height/Weight/BMI: Height 1.63 m Weight 61.9 kg Body Mass Index 23.4 - Constitutional Present: no acute distress, well nourished, well developed, thin - Routine HEENT Exam Eye: Present: PERRL. Absent: conjunctival icterus, scleral injection ENT: Present: oropharynx clear - Routine Respiratory Exam Present: CTA bilaterally - Routine Cardiovascular Exam Present: RRR, S1, S2, murmur - Routine Abdominal Exam Present: soft, normoactive bowel sounds, non distended, non tender - Routine Extremities Exam Present: no edema - Routine Musculoskeletal Exam Musculoskeletal: Present: moving extremities well - Routine Skin Exam Present: intact, dry, warm - Routine Neurological Exam Present: alert, normal speech. Absent: oriented X3, facial asymmetry - Routine Psychiatric Exam Present: normal affect, cooperative Results - Labs CBC & Chem 7: 04/11/17 04:24 04/11/17 04:24 Assessment and Plan (1) Subacute intracranial hemorrhage Current visit: Yes Status: Acute Assessment and Plan: Assessment Intraparenchymal hemorrhage, recurrence Concern for cognitive deficits given left frontal lobe location of bleed Variable Hypertension CAD h/o CABG Valvular heart disease h/o TAVR (no open valve surgery) Possible CHF Left ICA stenosis, mild Type II DM Hyperlipidemia Hypothyroidism Anemia Stage III CKD Plan Hyperglycemia, DM2 - glipizide added over the weekend. Continue metformin. Renal function improved. Labs stable overall. BP under good control; occ mild bradycardia, chronic per family report. No BM charted - start Senna Plus BID and MOM PRN. GI Prophylaxis: Protonix Hospital Course Summary Disclaimer: The visit summary below is not to be considered part of the above Progress Note. Hospital Course: 04/09/17 13:34 Assessment: Intraparenchymal hemorrhage, recurrence Variable Hypertension CAD h/o CABG Valvular heart disease h/o TAVR (no open valve surgery) Possible CHF Left ICA stenosis, mild DM2 Anemia Acute on chronic renal disease Plan: Higher risk of recurrence given history. Continue BP control- attempt to avoid aggressive highs or lows. Continue Coreg and DEMOND, but monitor SCr. Suspect CKD is chronic- baseline appears to be around 1.5. Continue ASA given cardiac history. Mild ICA stenosis- no surgical intervention. Hx of right CEA in the past. BG has been running high. Will add low-dose glipizide for now. Continue current metformin given age. Follow HGB- anemia may be related to stress, CKD, and acute IPH. Resume home eye gtts. 04/11/17 Hyperglycemia, DM2 - glipizide added over the weekend. Continue metformin. Renal function improved. Labs stable overall. BP under good control; occ mild bradycardia, chronic per family report. No BM charted - start Senna Plus BID and MOM PRN. <Johnny Mancera D - Last Filed: 04/11/17 19:49> - Date 04/11/17 Objective Vital signs: Temperature 97.4 F 04/11/17 15:54 Pulse Rate 55 L 04/11/17 15:54 Respiratory Rate 16 04/11/17 15:54 Blood Pressure 118/48 04/11/17 15:54 Pulse Oximetry 95 04/11/17 15:54 Height/Weight/BMI: Height 1.63 m Weight 61.9 kg Body Mass Index 23.4 Results - Labs CBC & Chem 7: 04/11/17 04:24 04/11/17 04:24 Assessment and Plan (1) Subacute intracranial hemorrhage Current visit: Yes Status: Acute Assessment and Plan: Assessment Intraparenchymal hemorrhage, recurrence Concern for cognitive deficits given left frontal lobe location of bleed Variable Hypertension CAD h/o CABG Valvular heart disease h/o TAVR (no open valve surgery) Possible CHF Left ICA stenosis, mild Type II DM Hyperlipidemia Hypothyroidism Anemia Stage III CKD Have independently interviewed and examined pt. Chart reviewed. Case discussed with my UNIVERSITY PROFESSOR. Care plan developed with my supervision; agree with above. Doing okay this evening. Tolerating therapy. Breathing well. Appetite stable. Lungs: clear CV: regular with click MSE: awake alert appropriate Plan: Continue with IRU to maximize functional status. Encourage therapy. Monitor sugar and BP. Work on bowel motivation. Medically stable for IRU floor activities. Hospital Course Summary Disclaimer: The visit summary below is not to be considered part of the above Progress Note.
[2017-04-11] MEDS: DOCUSATE SODIUM 100 MG CAPSULE PO SCH ×2 (08:21→20:38)
[2017-04-11] MEDS: GlipiZIDE 5 MG TABLET PO SCH (08:21)
[2017-04-11] MEDS: CARVEDILOL 25 MG TABLET PO SCH ×2 (08:21→17:40)
[2017-04-11] MEDS: ASPIRIN 81 MG CHEWABLE TABLET PO SCH (08:21)
[2017-04-11] MEDS: METFORMIN 500 MG TABLET PO SCH ×2 (08:22→17:40)
[2017-04-11] MEDS: BENAZEPRIL 40 MG TABLET PO SCH (08:22)
[2017-04-11] MEDS: MULTI-VITAMIN PLAIN TABLET PO SCH (08:22)
[2017-04-11] MEDS: SENNA + DOCUSATE TABLET PO SCH ×2 (08:26→20:38)
[2017-04-11] MEDS: ERYTHROMYCIN 250 MG PO SCH ×2 (10:05→20:38)
--- NOTE | 2017-04-11 10:13 | IRU Progress Note ---
- Subjective/Serverity of Illness Date: 04/11/17 Ms. Hunter was evaluated on the inpatient rehabilitation unit. She is cooperative with therapy and tolerates therapy well. However she clearly has memory issues. It is not clear if these are worse than baseline or not. She tends to refer to the therapists when I ask her a question. She will look to the therapists for confirmation of her answer. In addition, I visited with a therapist and she also notes cognitive functional deficit. We will ask speech therapy to see her in this regard. She denies any chest pain and denies shortness of breath. She denies any headaches. She denies visual changes. She reports that her appetite is good in that she is having adequate bowel movements. Update on medical problems were actively managing and monitoring as follows: 1. Recent intraparenchymal bleed resulting in multiple functional impairments. She does not have evidence of further neurologic deficit or new neurologic events. She denies any headaches. 2. Labile blood pressure. Review blood pressures indicates that they have been controlled for the most part. We are avoiding hypotension and extreme hypertension. 3. Diabetes mellitus, type II. Blood sugars are reviewed. Most of them are running 190-200 range. Management per hospitalists. 4. Anemia. Hemoglobin has been monitored and is increased here compared to the baseline value we obtained on admission. No evidence of active bleeding. 5. Acute kidney injury. Her creatinine has improved from 1.4 down to 1.2. However calculation of EGFR based on gender, age and creatinine indicates that she continues to be chronic kidney disease stage III. The acute kidney injury appears to have resolved however. Exam Vital Signs: Temperature 97.5 F 04/11/17 07:46 Pulse Rate 61 04/11/17 07:46 Respiratory Rate 16 04/11/17 07:46 Blood Pressure 138/49 04/11/17 07:46 Pulse Oximetry 98 04/11/17 07:46 Height/Weight/BMI: Height 1.63 m Weight 61.9 kg Body Mass Index 23.4 Comments: The patient is awake and alert. She knows she is in [place]. She tends to look to the therapist for confirmation of other answers. Pupils are equal. The neck is supple. Chest: Clear to auscultation bilaterally. Cor: RR with no gallop, click nor murmur Abd: soft with normo-active bowel sounds. There are no masses, no tenderness and no guarding. Extremities: No edema is noted. Neurologically she seems to be intact. I do not see any definite facial droop. Her speech is fluent and not slurred. Strength appears to be adequate bilaterally in the upper and lower extremities. Results IRU - Labs Labs: Reviewed labs as well as other providers notes. IRU A/P (1) Subacute intracranial hemorrhage Current visit: Yes Status: Acute We'll continue to monitor her neurologic status. She does have evidence of memory loss but this may be baseline. We will ask speech therapy to assess and treat in this regard. She does not have any headaches and does not have evidence of new bleed or new neurologic events. (2) Hypertension Qualifiers: Hypertension type: essential hypertension Qualified Code(s): I10 - Essential (primary) hypertension Current visit: Yes Status: Chronic Her blood pressures are monitored. We are trying to avoid hypotension and extreme hypertension. Overall blood pressures appear to be adequately controlled. (3) DM type 2 (diabetes mellitus, type 2) Qualifiers: Diabetes mellitus complication status: with hyperglycemia Diabetes mellitus prison insulin use: without button tacker use Qualified Code(s): E11.65 - Type 2 diabetes mellitus with hyperglycemia Current visit: Yes Status: Chronic Blood sugars are running around 200. Per hospitalists regarding management. (4) Anemia Qualifiers: Anemia type: unspecified type Qualified Code(s): D64.9 - Anemia, unspecified Current visit: Yes Status: Acute DVT Prophylaxis: SCD's Resuscitation Status: Full Code - Course Hospital Course: Gaudencio Coe MD: 04/11/17 10:15 Memory seems to be an impediment to functional progress. She is cooperative with therapy and tolerating therapy well. No new neurologic findings are noted. - Interventions to Obtain Goals PT Treatment Plan: Balance/Proprioception, Functional Activities, Gait Training , Patient/Family Education OT Treatment Plan: ADL (Basic Care), Balance Training, IADL, Ther. Exercise for ADL, UE Functional Training Goals Progress/Modifications: Time spent with patient and on floor reviewing data and documentin min Barriers to dismissal: Cognition/memory, endurance Medical decision-making: Review blood sugars and blood pressures. Appreciate hospitalists input in this regard. She is having cognitive deficit issues and I will ask speech therapy to assess and treat that. She is cooperative with therapy. She denies any excessive fatigue, shortness of breath or chest pain with therapy. In addition, we are monitoring her neurologic status. Has good strength bilaterally in the upper and lower extremities. No new facial droop and no evidence of new neurologic decline.
--- NOTE | 2017-04-11 10:47 | IRU Plan of Care ---
U Overall Plan of Care - Date Date: 04/11/17 - Patient Impairments (1) Subacute intracranial hemorrhage Code(s): I62.9 - Nontraumatic intracranial hemorrhage, unspecified Status: Acute Classification: Present on IRF Admission, IRF Tx That Should Address Diagnosis, Diagnosis Requiring Medical Follow Up (2) DM type 2 (diabetes mellitus, type 2) Qualifiers: Diabetes mellitus complication status: with hyperglycemia Diabetes mellitus [facility] insulin use: without termite technician use Qualified Code(s): E11.65 - Type 2 diabetes mellitus with hyperglycemia Code(s): E11.9 - Type 2 diabetes mellitus without complications Status: Chronic Classification: Present on IRF Admission, IRF Tx That Should Address Diagnosis, Diagnosis Requiring Medical Follow Up (3) Hypertension Qualifiers: Hypertension type: essential hypertension Qualified Code(s): I10 - Essential (primary) hypertension Code(s): I10 - Essential (primary) hypertension Status: Chronic Classification: Present on IRF Admission, IRF Tx That Should Address Diagnosis, Diagnosis Requiring Medical Follow Up (4) Senile dementia Qualifiers: Dementia behavioral disturbance: without behavioral disturbance Qualified Code(s): F03.90 - Unspecified dementia without behavioral disturbance Code(s): F03.90 - Unspecified dementia without behavioral disturbance Status: Chronic Classification: Present on IRF Admission, IRF Tx That Should Address Diagnosis, Diagnosis Requiring Medical Follow Up - Relevant Changes Relevant Changes: No Reviewed: I have reviewed the patient's information and concur with the finding and results of the pre-admission screen. Certification: I certify the patient for rehabilitation. - Medical Prognosis Medical Prognosis: Good Vital Signs: Last Vital Signs Temp 97.5 F 04/11/17 07:46 Pulse 61 04/11/17 07:46 Resp 16 04/11/17 07:46 BP 138/49 04/11/17 07:46 Pulse Ox 98 04/11/17 07:46 - Anticipated Interventions Anticipated Interventions: The patient requires inpatient IRF care for PT, OT, and/or ST for residuals remaining from intraparenchymal bleed resulting in muscular weakness and strength deficits. An individualized overall plan of care has been developed after careful review of the patient's preadmission screening, post admission physician evaluation and assessments of all therapy disciplines and/or other pertinent clinicians involved in treating the patient. This indicates medical necessity and rehabilitation necessity have been established through a thorough review of all available medical information. - Current Functional Status Failed Alternative Therapy: Yes (Outpatient PT/OT eval.) Patient Requires: The patient requires oversight by rehabilitation physician to manage their rehabilitation treatment plan and multidisciplinary approach to care that can only be provided in an IRF and requires a multidisciplinary approach to care, provided by professional PTs, OTs, STs, rehabilitation nurses, and may require STs, dieticians, and RTS. This is not available in lesser levels of care. Therapy: The patient is to receive therapy at least 5 days a week. Plan of Care Comment: Physical therapy: 75 minutes 3 days weekly, 90 minutes 2 days weekly. Occupational therapy: 75 minutes 3 days weekly, 90 minutes 2 days weekly. Speech therapy: 30 minutes 3 days weekly - Anticipated LOS/Outcomes Anticipated Functional Outcome: Expected functional improvements include: -- Modified independant to independant ambulation with or without assistive device -- Modified independant to independant ADL's with or without assistive device -- Return to pre-morbid level of mobility -- Maximize level of mobility and ADL's to decrease burden on any caregiver involved with this patient's care Anticipated Length of Stay (days): 7 Anticipated DC Destination: Home, Self Care, Home Health Service Home Safety Plan: The patient will be provided with the development of a Home Safety Plan for return to a home or home-like environment and and to ensure safety post discharge. - Plan to Avoid Complications Barriers to Attaining Goals: Weakness, Balance, Endurance, Comprehension Plan to Avoid Complications: The patient cannot receive this care in a lesser intensive setting such as Long Term or Outpatient Therapy due to the patient requiring the following : Patient requires 24 hour rehabilitation nursing to carefully monitor blood sugars and avoid hypoglycemia. She requires careful monitoring of her blood pressure in view of the recent intraparenchymal hemorrhage, to avoid hypotension and excessive hypertension. Finally, she needs a multidisciplinary approach with PT, OT and speech therapy in view of her cognitive deficits.
--- NOTE | 2017-04-11 11:36 | Letter to Referring Physician ---
Dear [], This is a brief note to bring you up-to-date on the status of Kristen Hunter and their stay on the acute inpatient rehabilitation unit at [facility]. As you are likely aware, this patient was admitted to the acute care hospital on [] for []. They were stabilized while on the acute level and admitted to inpatient rehabilitation unit and [facility] on April 08, 2017. While on inpatient rehabilitation, this patient was seen by occupational therapy and physical therapy and improved overall in their functional ability. In addition we monitored the following medical problems while on rehabilitation : []. Please see a copy of the history and physical examination as well as discharge summary enclosed with this letter for further details. We do recommend that the patient have the following labs or other tests obtained in follow-up: []. Thank you for allowing us to be involved in this nice patient's care. Please contact me directly should you have any questions regarding their stay on the inpatient rehabilitation unit. Sincerely, Gaudencio Coe M.D.
[2017-04-11] MEDS: ATORVASTATIN 10 MG TABLET PO SCH (20:38)
[2017-04-12] MEDS: PANTOPRAZOLE 40 MG TABLET PO SCH (06:24)
[2017-04-12] MEDS: LEVOTHYROXINE 50 MCG TABLET PO SCH (06:24)
[2017-04-12] MEDS: ERYTHROMYCIN 250 MG PO SCH ×2 (08:41→21:30)
[2017-04-12] MEDS: GlipiZIDE 5 MG TABLET PO SCH (08:41)
[2017-04-12] MEDS: CARVEDILOL 25 MG TABLET PO SCH ×2 (08:41→18:07)
[2017-04-12] MEDS: DOCUSATE SODIUM 100 MG CAPSULE PO SCH ×2 (08:41→21:30)
[2017-04-12] MEDS: METFORMIN 500 MG TABLET PO SCH ×2 (08:42→18:08)
[2017-04-12] MEDS: SENNA + DOCUSATE TABLET PO SCH ×2 (08:42→21:30)
[2017-04-12] MEDS: MULTI-VITAMIN PLAIN TABLET PO SCH (08:42)
[2017-04-12] MEDS: ASPIRIN 81 MG CHEWABLE TABLET PO SCH (08:43)
[2017-04-12] MEDS: BENAZEPRIL 40 MG TABLET PO SCH (08:45)
--- NOTE | 2017-04-12 10:05 | IRU Progress Note ---
- Subjective/Serverity of Illness Date: 04/12/17 Ms. Hunter states she does not have any headache problems. Does complain of dry eyes. Her eyedrops have been as needed but we will make them regularly scheduled twice daily which is what she was using at home. Otherwise she denies any visual changes and denies any new neurologic findings. Speech therapy is been consulted. I reviewed speech therapy notes. Patient does exhibit quite a bit of perseveration and has significant cognition deficits. Speech therapy will continue working with patient 5 days weekly. Blood sugars are noted and remain a bit elevated. Blood pressures are much improved at the present time. Continues to progress with therapy. She is standby assist for many activities. However she exhibits poor safety awareness, poor strength and poor endurance. Exam Vital Signs: Temperature 97.8 F 04/12/17 08:00 Pulse Rate 66 04/12/17 08:00 Respiratory Rate 12 04/12/17 08:00 Blood Pressure 135/48 04/12/17 08:00 Pulse Oximetry 97 04/12/17 08:00 Height/Weight/BMI: Height 1.63 m Weight 61.9 kg Body Mass Index 23.4 Comments: The patient is awake and alert. She tends to act confused. Not certain she is well oriented. However she is in no acute distress and does not display any new neurologic findings. Pupils are equal. The neck is supple. Chest: Clear to auscultation bilaterally. Cor: RR with no gallop nor click. She does exhibit both a systolic and now I hear a diastolic decrescendo murmur, likely consistent with aortic insufficiency. Abd: soft with normo-active bowel sounds. There are no masses, no tenderness and no guarding. Extremities: No edema is noted. IRU A/P (1) Subacute intracranial hemorrhage Current visit: Yes Status: Acute She denies any headaches. Other than dry eyes she denies any visual changes. No new neurologic findings are noted. (2) DM type 2 (diabetes mellitus, type 2) Qualifiers: Diabetes mellitus complication status: with hyperglycemia Diabetes mellitus termite exterminator insulin use: without termite exterminator use Qualified Code(s): E11.65 - Type 2 diabetes mellitus with hyperglycemia Current visit: Yes Status: Chronic Remains on oral agents. Her blood sugars are running around 180-200. (3) Hypertension Qualifiers: Hypertension type: essential hypertension Qualified Code(s): I10 - Essential (primary) hypertension Current visit: Yes Status: Chronic Her blood pressures are much improved at the present time. (4) Senile dementia Qualifiers: Dementia behavioral disturbance: without behavioral disturbance Qualified Code(s): F03.90 - Unspecified dementia without behavioral disturbance Current visit: Yes Status: Chronic She is now being seen by speech therapy. Ongoing cognition training etc. will be performed. DVT Prophylaxis: SCD's Resuscitation Status: Full Code - Course Hospital Course: Gaudencio Coe MD: 04/11/17 10:15 Memory seems to be an impediment to functional progress. She is cooperative with therapy and tolerating therapy well. No new neurologic findings are noted. 04/12/17 10:08 While she is cooperative with therapy and making progress, she displays poor safety awareness, reduced cognition, poor balance/strength and endurance. Blood pressures are much improved. - Interventions to Obtain Goals PT Treatment Plan: Balance/Proprioception, Functional Activities, Gait Training , Patient/Family Education OT Treatment Plan: ADL (Basic Care), Balance Training, IADL, Ther. Exercise for ADL, UE Functional Training
[2017-04-12] MEDS: ATORVASTATIN 10 MG TABLET PO SCH (21:30)
[2017-04-12] MEDS: SYSTANE EYE DROPS 0.7ml EACH EYE SCH (21:30)
[2017-04-13] MEDS: PANTOPRAZOLE 40 MG TABLET PO SCH ×2 (06:18→06:19)
[2017-04-13] MEDS: LEVOTHYROXINE 50 MCG TABLET PO SCH (06:18)
[2017-04-13] MEDS: DOCUSATE SODIUM 100 MG CAPSULE PO SCH ×2 (08:36→21:17)
[2017-04-13] MEDS: GlipiZIDE 5 MG TABLET PO SCH (08:36)
[2017-04-13] MEDS: ASPIRIN 81 MG CHEWABLE TABLET PO SCH (08:37)
[2017-04-13] MEDS: ERYTHROMYCIN 250 MG PO SCH ×2 (08:37→21:17)
[2017-04-13] MEDS: CARVEDILOL 25 MG TABLET PO SCH ×2 (08:37→17:47)
[2017-04-13] MEDS: METFORMIN 500 MG TABLET PO SCH ×2 (08:37→17:46)
[2017-04-13] MEDS: MULTI-VITAMIN PLAIN TABLET PO SCH (08:37)
[2017-04-13] MEDS: SYSTANE EYE DROPS 0.7ml EACH EYE SCH ×2 (08:37→21:18)
[2017-04-13] MEDS: SENNA + DOCUSATE TABLET PO SCH ×2 (08:37→21:18)
[2017-04-13] MEDS: BENAZEPRIL 40 MG TABLET PO SCH (08:37)
--- NOTE | 2017-04-13 11:16 | IRU Progress Note ---
- Subjective/Serverity of Illness Date: 04/13/17 Ms. Hunter was interviewed and examined in her room. She continues to not be well oriented. She is very cooperative and pleasant however. Once again she tells me about her dry eyes. She denies any headaches. She denies any other visual changes. There have been no new neurologic findings noted. I reviewed her blood sugars which demonstrate improved control. In addition I reviewed her blood pressures which are also overall quite good. We are attending to avoid hypotension and hypertension. Exam Vital Signs: Temperature 98.5 F 04/13/17 08:00 Pulse Rate 60 04/13/17 08:00 Respiratory Rate 18 04/13/17 08:00 Blood Pressure 132/60 04/13/17 08:00 Pulse Oximetry 94 04/13/17 08:00 Height/Weight/BMI: Height 1.63 m Weight 59 kg Body Mass Index 23.4 Comments: The patient is awake, alert and in no acute distress. She is not well oriented. Tends to repeat the same answers from day-to-day. Pupils are equal. The neck is supple. Chest: Clear to auscultation bilaterally. Cor: RR with no gallop, click nor murmur Abd: soft with normo-active bowel sounds. There are no masses, no tenderness and no guarding. Extremities: No edema is noted. Neurologic exam: She has good strength bilaterally in the upper and lower extremities. There is no facial droop. Speech is fluent. IRU A/P (1) Subacute intracranial hemorrhage Current visit: Yes Status: Acute She remains neurologically stable. She is progressing with therapy. However, memory is an impediment. (2) DM type 2 (diabetes mellitus, type 2) Qualifiers: Diabetes mellitus complication status: with hyperglycemia Diabetes mellitus penitentiary insulin use: without penitentiary use Qualified Code(s): E11.65 - Type 2 diabetes mellitus with hyperglycemia Current visit: Yes Status: Chronic Blood sugars are reviewed and are improved. (3) Hypertension Qualifiers: Hypertension type: essential hypertension Qualified Code(s): I10 - Essential (primary) hypertension Current visit: Yes Status: Chronic Blood pressures look good. We're avoiding hypotension and severe hypertension. (4) Senile dementia Qualifiers: Dementia behavioral disturbance: without behavioral disturbance Qualified Code(s): F03.90 - Unspecified dementia without behavioral disturbance Current visit: Yes Status: Chronic DVT Prophylaxis: SCD's Resuscitation Status: Full Code - Course Hospital Course: Gaudencio Coe MD: 04/11/17 10:15 Memory seems to be an impediment to functional progress. She is cooperative with therapy and tolerating therapy well. No new neurologic findings are noted. 04/12/17 10:08 While she is cooperative with therapy and making progress, she displays poor safety awareness, reduced cognition, poor balance/strength and endurance. Blood pressures are much improved. 04/13/17 11:15 She is cooperative with therapy. Cognition is an impediment. Continues to display poor safety awareness and difficulty with education. Blood pressures and sugars are improved. - Interventions to Obtain Goals PT Treatment Plan: Balance/Proprioception, Functional Activities, Gait Training , Patient/Family Education OT Treatment Plan: ADL (Basic Care), Balance Training, IADL, Ther. Exercise for ADL, UE Functional Training
--- NOTE | 2017-04-13 13:29 | IRU Team Meeting ---
IRU Team Meeting - Nursing Bladder Assistive Devices Utilized:: Absorbent Pad Bladder Management Level of Assist: Modified Independent Bladder Frequency of Accidents: No accidents Bowel Assistive Devices Utilized:: Medication, Absorbent Pad Bowel Management Level of Assist: Modified Independent Bowel Frequency of Accidents: No accidents Number of Bowel Accidents: 1 Vital Signs: Vital Signs - 24 hr 04/12/17 16:00 04/12/17 23:37 04/13/17 08:00 Temperature 98.1 F 98.8 F 98.5 F Pulse Rate 61 55 L 60 Respiratory Rate 16 16 18 Blood Pressure 115/45 133/48 132/60 Pulse Oximetry 94 96 94 Current Medications: Aspirin (Asa) 81 mg PO DAILY [facility] Last Admin: 04/13/17 08:37 Dose: 81 mg Atorvastatin Calcium (Lipitor) 10 mg PO HS [facility] Last Admin: 04/12/17 21:30 Dose: 10 mg Benazepril HCl (Lotensin) 40 mg PO DAILY [facility] Last Admin: 04/13/17 08:37 Dose: 40 mg Carvedilol (Coreg) 25 mg PO BIDBS [facility] Last Admin: 04/13/17 08:37 Dose: 25 mg Cholecalciferol (Vit. D-3) 400 unit PO DAILY [facility] Last Admin: 04/13/17 08:37 Dose: 400 unit Cyanocobalamin (Vit. B-12) 1,000 mcg SQ Q30D [facility] Last Admin: 04/08/17 18:39 Dose: 1,000 mcg Docusate Sodium (Colace) 100 mg PO BID [facility] Last Admin: 04/13/17 08:36 Dose: 100 mg Erythromycin (Ender-Tab) 250 mg PO BID [facility] Last Admin: 04/13/17 08:37 Dose: 250 mg Glipizide (Glucotrol) 2.5 mg PO ACB30 [facility] Last Admin: 04/13/17 08:36 Dose: 2.5 mg Levothyroxine Sodium (Synthroid) 50 mcg PO ACB [facility] Last Admin: 04/13/17 06:18 Dose: 50 mcg Magnesium Hydroxide (Mom) 30 ml PO DAILY PRN PRN Reason: Constipation Last Admin: 04/11/17 08:26 Dose: 30 ml Metformin HCl (Glucophage) 500 mg PO BIDWM [facility] Last Admin: 04/13/17 08:37 Dose: 500 mg Multivitamins (Theragran) 1 tab PO DAILY [facility] Last Admin: 04/13/17 08:37 Dose: 1 tab Pantoprazole Sodium (Protonix Tab) 40 mg PO ACB [facility] Last Admin: 04/13/17 06:19 Dose: 40 mg Polyethyl Glycol/Propylene Glycol (Systane Eye Drops) 1 drop EACH EYE BID [facility] Last Admin: 04/13/17 08:37 Dose: 1 drop Senna/Docusate Sodium (Senna Plus Tablet) 1 tab PO BID [facility] Last Admin: 04/13/17 08:37 Dose: 1 tab Current Medical Issues: Diabetes mellitus, hypertension, cognition Comments: I certify that I personally led the interdisciplinary team meeting and agree with comments, barriers and goals indicated. Team meeting was held in the patient's room with the patient and the following family members present: patient's daughter Ms. Hunter is very pleasant and cooperative. Her blood pressures have been well controlled. Her blood sugars were running a bit higher and therefore glipizide was started on top of the metformin. Her daughter who is with her today indicates that she did have some hypoglycemic spells in the past and these will be monitored carefully. - Dietary Patient is currently on a 1600-calorie consistent carbohydrate diet. Dietitian is also monitoring the patient. This appears to be a good amount of intake for her. If the patient goes to a structured 24-hour environment, meals will be provided according to this guideline. - Speech Therapy She continues to require speech therapy. Cognition issues are being worked on. Progress is slow. She appears to have severe to profound deficits with cognition. She has poor executive function tasks. - Physical Therapy Bed, Chair, Wheelchair Transfer Assist: Stand By Assist/Supervision Ambulation Ability: Stand By Assist/Supervision Ambulation Distance: 453 Stair Climbing Ability: Stand By Assist/Supervision Number of Steps Climbed: 12 Car Transfer Ability: Stand By Assist/Supervision Comments: She has made progress with physical therapy. She is able to walk 453 feet with standby assistance and a front-wheeled walker. She does have occasional, minor loss of balance episodes. Attempts were made at using a cane but that was not successful. She was able to perform bed mobility, transfers and gait and stairs with standby assistance. She requires multiple cues. - Occupational Therapy Eating Ability: Independent Grooming Ability: Independent Bathing Ability: Stand By Assist/Supervision Upper Body Dressing Ability: Independent Lower Body Dressing Ability: Stand By Assist/Supervision Tub Transfer Assist: Patient Refuses Toileting Assist: Stand By Assist/Supervision Toilet Transfer Assist: Stand By Assist/Supervision Comments: Patient has been very cooperative with occupational therapy. Unfortunately her poor short-term memory limits progress. She is forgetful of the task at hand. She does require [id number] sequential cues. She is unable to identify correct medication management. She is not safe to live by herself at home at present. - Goals Physical Therapy Goals: 04/13/17: 1. Pt to score 24/28 Tinetti balance score and TUG of 25 seconds. 2. Pt to demo mod I level for transfers and gait. 3. Pt to demo safety with turning with FWW during gait. Occupational Therapy Goals: 04/13/17 Goals: 1.) Pt. to perform dressing tasks w / 1 Vc. - Barriers to Discharge Barriers to Attaining Goals: Comprehension, Other (safety awareness) - Care Plan Anticipated Length of Stay (days): 2 Anticipated DC Destination: [facility]Facility (it appears as though she has improved functionally with OT and PT. However she requires multiple cues and her cognition is a limiting factor. It is hoped that after the brain bleed has resorbed, her mentation/cognition may improve. In the meantime she will require 24-hour management.) I have led this team conference and agree with the plan.
--- NOTE | 2017-04-13 14:32 | Progress Note ---
Progress Note: Received phone call from patient's daughter. She requests CT scan of head be performed because of patient's confusion. This is ordered today and we will compare with previous scans.
--- NOTE | 2017-04-13 15:41 | CT Scan Report ---
Indication: hx intraparenchymal bleed, more confusion, PROCEDURE: CT head/brain wo con: Encounter: Subsequent Comparison: Head CT dated March 31, 2017 Technique: Axial CT images through the head were performed without contrast. Iterative Reconstruction dose reducing technique was utilized. FINDINGS: Interval expected evolution of the prior large left frontal intraparenchymal hemorrhage. There is resolution of the prior mass effect and rightward midline shift with decreasing surrounding vasogenic edema. No evidence of a recurrent hemorrhage or acute blood products currently. No midline shift. Ventricles are stable. Extensive white matter small vessel ischemic changes are redemonstrated throughout both cerebral hemispheres. 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 No calvarial fracture. No evidence of an acute territorial stroke. Impression: Expected interval evolution of the left frontal intraparenchymal hemorrhage with decreasing surrounding edema. No evidence of a recurrent hemorrhage. .
[2017-04-13] MEDS: ATORVASTATIN 10 MG TABLET PO SCH (21:17)
[2017-04-14] MEDS: LEVOTHYROXINE 50 MCG TABLET PO SCH (06:54)
[2017-04-14] MEDS: PANTOPRAZOLE 40 MG TABLET PO SCH (06:54)
[2017-04-14] MEDS: SENNA + DOCUSATE TABLET PO SCH ×2 (08:21→20:40)
[2017-04-14] MEDS: DOCUSATE SODIUM 100 MG CAPSULE PO SCH ×2 (08:21→20:40)
[2017-04-14] MEDS: MULTI-VITAMIN PLAIN TABLET PO SCH (08:21)
[2017-04-14] MEDS: BENAZEPRIL 40 MG TABLET PO SCH (08:21)
[2017-04-14] MEDS: ERYTHROMYCIN 250 MG PO SCH ×2 (08:21→20:40)
[2017-04-14] MEDS: SYSTANE EYE DROPS 0.7ml EACH EYE SCH ×2 (08:22→20:39)
[2017-04-14] MEDS: GlipiZIDE 5 MG TABLET PO SCH (08:22)
[2017-04-14] MEDS: CARVEDILOL 25 MG TABLET PO SCH ×2 (08:22→17:19)
[2017-04-14] MEDS: METFORMIN 500 MG TABLET PO SCH ×2 (08:22→17:19)
[2017-04-14] MEDS: ASPIRIN 81 MG CHEWABLE TABLET PO SCH (08:23)
[2017-04-14] MEDS: ATORVASTATIN 10 MG TABLET PO SCH (20:40)
[2017-04-15] MEDS: LEVOTHYROXINE 50 MCG TABLET PO SCH (05:58)
[2017-04-15] MEDS: PANTOPRAZOLE 40 MG TABLET PO SCH (05:58)
[2017-04-15 08:31] VITALS: BP 108/47; PULSE 62; RESP 16; TEMP 98.4; O2SAT 97
[2017-04-15] MEDS: DOCUSATE SODIUM 100 MG CAPSULE PO SCH (08:39)
[2017-04-15] MEDS: ERYTHROMYCIN 250 MG PO SCH (08:39)
[2017-04-15] MEDS: GlipiZIDE 5 MG TABLET PO SCH (08:40)
[2017-04-15] MEDS: METFORMIN 500 MG TABLET PO SCH (08:40)
[2017-04-15] MEDS: MULTI-VITAMIN PLAIN TABLET PO SCH (08:40)
[2017-04-15] MEDS: CARVEDILOL 25 MG TABLET PO SCH (08:40)
[2017-04-15] MEDS: BENAZEPRIL 40 MG TABLET PO SCH (08:40)
[2017-04-15] MEDS: SYSTANE EYE DROPS 0.7ml EACH EYE SCH (08:41)
[2017-04-15] MEDS: SENNA + DOCUSATE TABLET PO SCH (08:41)
[2017-04-15] MEDS: ASPIRIN 81 MG CHEWABLE TABLET PO SCH (08:42)
--- NOTE | 2017-04-15 10:45 | IRU Progress Note ---
- Subjective/Serverity of Illness Date: 04/15/17 Ms. Hunter continues to demonstrate confusion. She reported to me that she is going to the retirement tomorrow and I discussed with her that that is indeed today. Approximately 5 seconds later she again told me she was going tomorrow. She denies any chest pain or shortness of breath. She denies any headaches. There are no new neurologic symptoms. Her blood sugars are reviewed and are stable. Exam Vital Signs: Temperature 98.4 F 04/15/17 08:00 Pulse Rate 62 04/15/17 08:00 Respiratory Rate 16 04/15/17 08:00 Blood Pressure 108/47 04/15/17 08:00 Pulse Oximetry 97 04/15/17 08:00 Height/Weight/BMI: Height 1.63 m Weight 59 kg Body Mass Index 23.4 Comments: The patient is awake, alert and oriented and in no acute distress. Pupils are equal. The neck is supple. Chest: Clear to auscultation bilaterally. Cor: RR with no gallop nor click. There are systolic and diastolic murmurs noted. Abd: soft with normo-active bowel sounds. There are no masses, no tenderness and no guarding. Extremities: No edema is noted. Neurologically she seems to be intact. There is no facial droop. Her strength appears to be good bilaterally IRU A/P (1) Subacute intracranial hemorrhage Current visit: Yes Status: Acute Review of CT scan indicates no new hemorrhage and reduced edema. She is stable from a neurologic standpoint. She will be going to a nursing facility. (2) DM type 2 (diabetes mellitus, type 2) Qualifiers: Diabetes mellitus complication status: with hyperglycemia Diabetes mellitus assisted insulin use: without superintendent container terminal use Qualified Code(s): E11.65 - Type 2 diabetes mellitus with hyperglycemia Current visit: Yes Status: Chronic Blood sugars are currently stable on metformin plus glipizide. We will order continued monitoring at the retirement. (3) Hypertension Qualifiers: Hypertension type: essential hypertension Qualified Code(s): I10 - Essential (primary) hypertension Current visit: Yes Status: Chronic (4) Senile dementia Qualifiers: Dementia behavioral disturbance: without behavioral disturbance Qualified Code(s): F03.90 - Unspecified dementia without behavioral disturbance Current visit: Yes Status: Chronic DVT Prophylaxis: SCD's Resuscitation Status: Full Code - Course Hospital Course: Gaudencio Coe MD: 04/11/17 10:15 Memory seems to be an impediment to functional progress. She is cooperative with therapy and tolerating therapy well. No new neurologic findings are noted. 04/12/17 10:08 While she is cooperative with therapy and making progress, she displays poor safety awareness, reduced cognition, poor balance/strength and endurance. Blood pressures are much improved. 04/13/17 11:15 She is cooperative with therapy. Cognition is an impediment. Continues to display poor safety awareness and difficulty with education. Blood pressures and sugars are improved. 04/15/17 10:45 Her cognition continues to be a concern. Poor safety awareness noted. Blood sugars and pressures appear to be stable to improved. - Interventions to Obtain Goals PT Treatment Plan: Balance/Proprioception, Functional Activities, Gait Training , Patient/Family Education OT Treatment Plan: ADL (Basic Care), Balance Training, IADL, Ther. Exercise for ADL, UE Functional Training
--- NOTE | 2017-04-15 10:49 | Letter to Referring Physician ---
Dear Dr. Li, This is a brief note to bring you up-to-date on the status of Kristen Hunter and her stay on the acute inpatient rehabilitation unit at [facility]. She has undergone therapy on the rehabilitation unit following her intraparenchymal bleed for which she was seen in [place] as well. She was admitted to inpatient rehabilitation unit at [facility] on April. While on inpatient rehabilitation, this patient was seen by occupational therapy and physical therapy and improved overall in their functional ability. We also monitored and managed the patient's blood sugars and pressures while on Acute Rehab. Please see a copy of the history and physical examination as well as discharge summary separately faxed. She is being transferred to [facility] for continued physical therapy and occupational therapy today. Thank you for allowing us to be involved in this nice patient's care. Please contact me directly should you have any questions regarding their stay on the inpatient rehabilitation unit. Sincerely, Gaudencio Coe M.D.
--- NOTE | 2017-04-15 10:55 | Extended Care Facility Orders ---
Admission Orders Admit to:: Longterm Allergies/Adverse Reactions: Allergies ampicillin Allergy (Unknown, Verified 04/08/17 20:49) RASH Admitting Diagnosis: acute intraparenchymal hemorrhage lt frontal lobe Admitting Physician: Gaudencio Coe MD Attending Physician: Gaudencio Coe MD Code Status: Full Code Anticiapted Length of Stay: 30 days or less Rehab Potential: fair Rehab Prognosis: fair Diet: 04/08/17 Dinner Consistent Carbohydrate Diet [DIET] Calorie Level: 1800 Wound/Incision Care: N/A May use Facility Protocol or Standing Orders: Yes May have flu vaccine: Yes Evaluations/Treatment: Speech, PT, OT Longterm Certification: I certify that SNF services are required to be given on an Inpatient basis because of the patients need for prison care on a continuing basis for the condition(s) for which he/she received inpatient hospital services prior to his/her transfer to the SNF. SNF inpatient care is necessary for the following reasons: monitoring of blood sugars, blood pressure and neurologic status in view of recent intraparenchymal bleed. Indication for Longterm: Neuro Assessment, Diabetic Assessment - Additional Information In Event of Arrest: Start CPR,call 911,send patient to the ER Resident is Aware of Diagnosis: Yes Referrals: Michael Li MD [Other] (Dr. Michael Li on 04/21/17 at 11:00 am for Hosp. follow-up. [facility]/[address] [address] )
--- NOTE | 2017-04-15 11:55 | Discharge Summary ---
Discharge Information Date of admission: 04/08/17 13:40 Anticipated date of discharge: 04/15/17 Attending Physician: Gaudencio Coe MD Primary care physician: Michael Mata MD Consults: 04/08/17 15:44 Physician Consult [CONS] Routine Consulting Provider: Caprice Dejesus Reason For Exam: Medical management Ordering Provider has Notified Janitorial Supervisor: Yes - Discharge Diagnosis (1) Subacute intracranial hemorrhage Status: Acute (2) DM type 2 (diabetes mellitus, type 2) Status: Chronic (3) Hypertension Status: Chronic (4) Senile dementia Status: Chronic 1. Subacute intraparenchymal brain hemorrhage 2. Benign essential hypertension 3. Diabetes mellitus type 2, not controlled, not on long-term insulin therapy 4. Senile dementia 5. Anemia, uncertain cause 6. Chronic kidney disease stage III (based on eGFR 43) - Laboratory Labs: 04/11/17 04:24 04/11/17 04:24 History of Present Illness HPI: 04/15/17 11:52 Ms. Hunter is from [facility] and is followed by Dr. Michael Li. She initially developed acute confusion and ultimately was determined to have an intraparenchymal bleed. Her blood pressures were quite high initially at around 230 systolic. She was initially seen locally and subsequently transferred to [facility] where she was hospitalized and seen by Dr. Napoles, neurosurgeon. He did not recommend intervention. The patient was evaluated by physical therapy and occupational therapy and was sent home. Since being home, she has not done well with regard to her activity. Family had to stay with her 24 hours daily. Because of this, suggestion was made for inpatient rehabilitation where she was admitted on 04/08/2017. 04/15/17 11:55 Hospital Course This is a general summary of the patient's hospital course. For more details refer to the complete medical record. An individualized intensive course of physical therapy, occupational therapy and speech therapy was designed for this patient. She was admitted to the inpatient rehabilitation unit at [facility] on 04/08/2017. She was followed by Dr. Coe, medical staff services manager of inpatient rehabilitation as well as by the hospitalist service at [facility]. Medical issues we followed included her cognition, her blood pressure which remained stable and actually quite well controlled. We attempted to avoid hypotension and extreme hypertension. We also monitored and treated her blood sugars. She was on metformin only but glipizide was re-added due to elevated blood sugars. She was seen by speech therapy. Unfortunately her cognition was such that it was not safe for her to be home alone. She was seen by occupational therapy. Upon admission her eating with standby assistance and ultimately was independent and functioning. Grooming was initially minimum assistance and ultimately independent. Bathing ability was initially minimum assistance and ultimately standby assistance. Upper body dressing was initially moderate assistance and ultimately independent. Lower body dressing was initially minimum assistance and ultimately standby assistance. Toileting assist was initially contact-guard and ultimately standby assistance. Toilet transfer assist was initially contact-guard and ultimately standby assistance. Bed/chair/wheelchair transfers were initially contact-guard and ultimately modified independent. She was seen by physical therapy. Bed/chair/wheelchair transfers were initially minimum assistance and ultimately standby assistance. Toilet assistance was initially moderate assistance and ultimately standby assistance. Car transfers were initially performed with contact-guard assistance and ultimately with standby assistance. Her ambulatory ability was contact-guard assistance initially and ultimately standby assistance with a front-wheeled walker. Distance was initially 150 feet and ultimately 370 feet. She was able to climb 12 steps with contact-guard assistance initially and ultimately standby assistance. Due to her cognition and poor safety awareness, it was felt safest that she should be in a 24-hour supervised environment. We feel as though she could still make progress with regard to physical therapy, occupational therapy and speech therapy and for this reason she is being transferred to skilled care in [place], [place]. At that time she will be monitored and treated by her personal physician Dr. Michael Li. Her blood sugars at the time of dismissal ranged between 150 and 230. Family was somewhat concerned about hypoglycemic episodes which she has had in the past with glipizide. Thus far she has not demonstrated that. Finally, we did repeat the CT scan of the head without contrast. This showed normal evolution of the intraparenchymal bleed without additional edema and without additional bleeding. She was neurologically stable at the time of dismissal. Hospital course: 04/09/17 13:34 Assessment: Intraparenchymal hemorrhage, recurrence Variable Hypertension CAD h/o CABG Valvular heart disease h/o TAVR (no open valve surgery) Possible CHF Left ICA stenosis, mild DM2 Anemia Acute on chronic renal disease Plan: Higher risk of recurrence given history. Continue BP control- attempt to avoid aggressive highs or lows. Continue Coreg and DEMOND, but monitor SCr. Suspect CKD is chronic- baseline appears to be around 1.5. Continue ASA given cardiac history. Mild ICA stenosis- no surgical intervention. Hx of right CEA in the past. BG has been running high. Will add low-dose glipizide for now. Continue current metformin given age. Follow HGB- anemia may be related to stress, CKD, and acute IPH. Resume home eye gtts. 04/11/17 Hyperglycemia, DM2 - glipizide added over the weekend. Continue metformin. Renal function improved. Labs stable overall. BP under good control; occ mild bradycardia, chronic per family report. No BM charted - start Senna Plus BID and MOM PRN. Time spent with patient: 25 - 35 minutes Discharge Plan - Med Rec/Dispo Referrals/Follow Up: Michael Li MD [Other] (Dr. Michael Li on 04/21/17 at 11:00 am for Hosp. follow-up. [facility]/[place] [id number] ) Prescriptions: New GlipiZIDE [Glucotrol] 2.5 mg PO ACB30 tab Senna + Docusate [Senna Plus Tablet] 1 tab PO HS tab Propylene Glycol/Peg 400/Pf [Systane 0.3-0.4% Eye Drops] 1 drop EACH EYE BID droperette Continue Carvedilol 25 mg PO BID #0 tab Metformin [Glucophage] 500 mg PO BIDWM Benazepril HCl 40 mg PO DAILY Atorvastatin [Lipitor] 1 tab PO HS Erythromycin Base [Erythromycin] 0.5 tab PO BID Cyanocobalamin (B-12) [Vit. B-12] 1,000 mcg SQ 1 MONTH Cholecalciferol (Vitamin D3) [Vitamin D3] 400 unit PO DAILY Pantoprazole Tab [Protonix Tab] 1 tab PO ACB Levothyroxine Tab [Synthroid] 50 mcg PO ACB Aspirin 1 tab PO DAILY Multi-Vitamin Plain [Theragran] 1 tab PO DAILY Discontinued Docusate Sodium [Colace] 100 mg PO BID #0 - Disposition 03 To SNU [facility])
== END 2017-04-15 12:45 | DRG 945 ==
PROVIDERS: ADMIT Internal Medicine; ATTEND Internal Medicine